=== PATIENT | female | born 1990 | race Caucasian/White ===

== ENCOUNTER 2017-07-17 12:43 | Inpatient (IN) ==
[2017-07-17] MEDS ORDERED: ONDANSETRON 4 MG/2 ML VIAL IV PRN (12:47)
[2017-07-17] MEDS ORDERED: DINOPROSTONE VAG GEL 10 MG SYRINGE VAG ONE (12:49)
[2017-07-17] MEDS: LACTATED RINGERS 1,000 ML IV SCH ×2 (13:12→20:21)
[2017-07-17 13:18] LABS: Basophils # 0.1 10*3/uL (0.0-0.2); Basophils % 0.4 % (0.0-0.8); Eosinophils % 0.3 % (0.00-10.9); Hematocrit 37.1 VOL% (35.7-47.0); Hemoglobin 12.9 GM/DL (12.0-16.0); Immature Granulocytes % 0.7 %; Immature Granulocytes Absolute 0.08 #; Lymphocytes # 1.9 10*3/uL (1.4-4.0); Lymphocytes % 15.8 % (21.3-54.2); Mean Corpuscular HGB Conc 34.8 GM/DL (32-36); Mean Corpuscular Hemoglobin 31 PG (27-34); Mean Corpuscular Volume 88.8 FL (87-102); Mean Platelet Volume 10.6 FL (9.6-12.0); Monocytes # 0.6 10*3/uL (0.11-0.8); Monocytes % 5.2 % (1.7-12.7); Neutrophils # 9.2 10*3/uL (1.4-7.4); Neutrophils % 77.6 % (38.7-73.9); Platelet Count 208 T/CUMM (130-400); Red Blood Count 4.18 MC/CUMM (3.8-5.5); Red Cell Distribution Width 12.8 % (9.3-17.3); White Blood Count 11.9 T/CUMM (4-12)
[2017-07-17 13:37] LABS: Alanine Aminotransferase 20 U/L (13-56); Albumin 2.5 G/DL (3.4-5.0); Alkaline Phosphatase 166 U/L (45-117); Aspartate Amino Transferase 26 U/L (0-37); Bilirubin,Total < 0.39 MG/DL (0.2-1.0); Blood Urea Nitrogen 12 MG/DL (7-18); Glucose 89 MG/DL (74-106); Osmolality,Calculated 273.7 MOS/KG (273-304); Potassium 4.4 MMOL/L (3.5-5.1); Sodium 138 MMOL/L (136-145); Total Protein 5.7 G/DL (6.4-8.3)
[2017-07-17] MEDS ORDERED: hydrALAZINE 20 MG/1 ML VIAL IV ONE (14:43)
[2017-07-17] MEDS ORDERED: LABETALOL 100 MG TABLET ONE (19:53)
[2017-07-17] MEDS: LABETALOL 100 MG TABLET PO SCH ×2 (19:56→22:07)
[2017-07-17] MEDS ORDERED: CITRIC ACID/SODIUM CITRATE 30 ML UDCUP PO ONE (19:57)
[2017-07-17] MEDS ORDERED: FAMOTIDINE 20 MG/2 ML VIAL IV ONE (19:57)
[2017-07-17] MEDS ORDERED: ePHEDrine 50 MG/ML AMP IV PRN (19:57)
[2017-07-17] MEDS ORDERED: ACETAMINOPHEN 325 MG TABLET PO PRN (19:59)
[2017-07-17] MEDS ORDERED: OXYTOCIN/LR 20 UNIT/1,000 ML BAG IV SCH (20:00)
[2017-07-17] MEDS ORDERED: fentaNYL 2 MCG/ROPIV 0.2% EPID 150 ML EPIDURAL ONE (20:13)
[2017-07-17 20:56] LABS: INR 0.8; PT Patient Result 8.6 SECS; Partial Thromboplastin Time 25.7 SECS (0-40)
[2017-07-17 23:35] LABS: Apearance,Urine CLEAR (Clear); Bilirubin,Urine Negative (Negative); Blood, Urine Negative (Negative); Glucose,Urine (UA) Negative (Negative); Ketones,Urine Negative (Negative); Mucus,Urine Occasional /LPF (Occasional); Nitrite,Urine Negative (Negative); Protein,Urine >=500 MG/DL; RBC,Urine <1 /HPF (0-4); Squamous Epithelial Cell,Urine Occasional /HPF (0-10); Urine Color Yellow (Yellow); Urine Specific Gravity 1.009 (1.001-1.035); Urine Urobilinogen < 2.0 EU/DL (0.2-1.0); WBC,Urine 1 /HPF (0-6)
[2017-07-18] MEDS: LACTATED RINGERS 1,000 ML IV SCH ×4 (00:14→20:54)
[2017-07-18] MEDS ORDERED: hydrALAZINE 20 MG/1 ML VIAL IV ONE (02:30)
[2017-07-18] MEDS ORDERED: OXYTOCIN 10 UNIT/ML VIAL ONE ×2 (04:02→04:23)
[2017-07-18] MEDS ORDERED: OXYTOCIN/LR 20 UNIT/1,000 ML BAG IV PRN (04:11)
[2017-07-18] MEDS ORDERED: OXYTOCIN/LR 30 UNIT/1,000 ML BAG IV ONE (04:22)
[2017-07-18] MEDS ORDERED: MORPHINE 10 MG/10 ML VIAL ONE (04:57)
[2017-07-18] MEDS ORDERED: ceFAZolin 2,000 MG in PREMIX 1 EACH IV ONE (05:00)
[2017-07-18 05:23] LABS: Cord Arterial Blood HCO3 23.8 MMOL/L
[2017-07-18 05:26] LABS: Cord Venous Blood PCO2 55.1 MMHG; Cord Venous Blood PO2 21.8 MMHG
[2017-07-18] MEDS ORDERED: RHO(D) IMMUNE GLOBULIN 300 MCG SYRINGE IM ONE (07:48)
[2017-07-18] MEDS ORDERED: MAGNESIUM HYDROXIDE SUSP 30 ML UDCUP PO PRN (07:48)
[2017-07-18] MEDS ORDERED: OXYTOCIN/LR 20 UNIT/1,000 ML BAG IV ONE (07:48)
[2017-07-18] MEDS ORDERED: SIMETHICONE CHEW 80 MG TABLET PO PRN (07:48)
[2017-07-18] MEDS ORDERED: ONDANSETRON 4 MG/2 ML VIAL IV PRN (07:48)
[2017-07-18] MEDS ORDERED: ACETAMINOPHEN 325 MG TABLET PO PRN (07:48)
[2017-07-18] MEDS ORDERED: HYDROmorphone 2 MG/1 ML VIAL IV PRN (07:52)
[2017-07-18] MEDS ORDERED: ceFAZolin 1,000 MG in SYRINGE 1 EACH IV SCH (08:00)
[2017-07-18] MEDS: hydrOXYzine HCL 25 MG/1 ML VIAL IM PRN ×2 (10:08→15:53)
[2017-07-18] MEDS: ceFAZolin 1,000 MG in SYRINGE 1 EACH IV SCH ×2 (12:21→20:49)
[2017-07-18] MEDS: DOCUSATE SODIUM 100 MG CAPSULE PO SCH ×2 (12:26→20:55)
[2017-07-18] MEDS: MULTIVITAMIN (PRENATAL) TABLET PO SCH (12:26)
[2017-07-18 12:51] LABS: Basophils % 0.2 % (0.0-0.8); Eosinophils % 0.1 % (0.00-10.9); Hematocrit 34.5 VOL% (35.7-47.0); Hemoglobin 11.8 GM/DL (12.0-16.0); Immature Granulocytes % 0.5 %; Immature Granulocytes Absolute 0.08 #; Lymphocytes # 1.8 10*3/uL (1.4-4.0); Lymphocytes % 10.7 % (21.3-54.2); Mean Corpuscular HGB Conc 34.2 GM/DL (32-36); Mean Corpuscular Hemoglobin 31 PG (27-34); Mean Corpuscular Volume 89.8 FL (87-102); Mean Platelet Volume 10.4 FL (9.6-12.0); Monocytes # 1.3 10*3/uL (0.11-0.8); Monocytes % 7.3 % (1.7-12.7); Neutrophils % 81.2 % (38.7-73.9); Platelet Count 156 T/CUMM (130-400); Red Blood Count 3.84 MC/CUMM (3.8-5.5); Red Cell Distribution Width 13.1 % (9.3-17.3); White Blood Count 17.2 T/CUMM (4-12)
[2017-07-19] MEDS: LACTATED RINGERS 1,000 ML IV SCH ×2 (04:22→07:50)
[2017-07-19 06:06] LABS: Basophils % 0.3 % (0.0-0.8); Eosinophils % 0.3 % (0.00-10.9); Hematocrit 30.1 VOL% (35.7-47.0); Hemoglobin 10.5 GM/DL (12.0-16.0); Immature Granulocytes % 0.5 %; Immature Granulocytes Absolute 0.06 #; Lymphocytes # 1.8 10*3/uL (1.4-4.0); Mean Corpuscular HGB Conc 34.9 GM/DL (32-36); Mean Corpuscular Hemoglobin 31 PG (27-34); Mean Corpuscular Volume 89.1 FL (87-102); Mean Platelet Volume 10.4 FL (9.6-12.0); Monocytes # 0.9 10*3/uL (0.11-0.8); Monocytes % 7.1 % (1.7-12.7); Neutrophils # 9.2 10*3/uL (1.4-7.4); Neutrophils % 76.8 % (38.7-73.9); Platelet Count 144 T/CUMM (130-400); Red Blood Count 3.38 MC/CUMM (3.8-5.5)
[2017-07-19] MEDS: MULTIVITAMIN (PRENATAL) TABLET PO SCH (09:36)
[2017-07-19] MEDS: DOCUSATE SODIUM 100 MG CAPSULE PO SCH ×2 (09:36→20:55)
[2017-07-19] MEDS: FUROSEMIDE 40 MG/4 ML VIAL IV SCH ×3 (09:36→18:48)
[2017-07-19] MEDS: IBUPROFEN 800 MG TABLET PO PRN (09:42)
[2017-07-20] MEDS: DOCUSATE SODIUM 100 MG CAPSULE PO SCH (08:24)
[2017-07-20] MEDS: MULTIVITAMIN (PRENATAL) TABLET PO SCH (08:24)
[2017-07-20] MEDS: IBUPROFEN 800 MG TABLET PO PRN (08:28)
[2017-07-20 10:34] VITALS: BP 138/86
[2017-07-20] MEDS ORDERED: DIPH/TET/ACEL PERT BOOSTER VACCINE 0.5 ML VIAL IM ONE (11:19)
== END 2017-07-20 14:15 | disposition home or self-care (01) | DRG 766 ==
LOC: N.LDOUT 12:43 → N.LD 12:43 → N.OB 07-18 08:11
PROVIDERS: ADMIT Obstetrics & Gynecology; ATTEND Obstetrics & Gynecology
PROC: LDCSECT (ICD-10-PCS; 2017-07-18 04:00)